=== PATIENT | female | born 1970 | race Caucasian/White ===

== ENCOUNTER → 2017-05-16 | Outpatient (CLI) | payer OTHER ==
[~2017-05-16] VITALS: Ht 167.6 cm; Wt 113.4 kg
[~2017-05-16] MED LIST: CARDIZEM90 MG PO; EFFEXOR XR150 MG PO; KEPPRA1000 MG PO; LEVEMIR FL100 UNIT/1 SC; LIPITOR80 MG PO; NOVOLOG PE100 UNITS/ SC; OXYCODONE HCL10 MG PO; PROAIR RESPICL90 MCG IH; TOPROL XL100 MG PO
[2017-05-16 08:30] LABS: POINT-OF-CARE METER ID UU14107333
[2017-05-16 08:32] LABS: HEMATOCRIT 37.6 % (36.0-46.0); MCHC 31.6 G/DL (30.0-36.0); MCV 82.1 FL (83-99); PLATELET COUNT 68 K/uL (156-360); RBC DIS.WIDTH-CV 15.9 % (11.8-14.6); RBC DIS.WIDTH-SD 47.8 % (39-53); RED BLOOD COUNT 4.58 M/uL (3.80-5.20); WHITE BLOOD COUNT 4.9 K/uL (4.1-10.2)
== END | disposition home or self-care (01) ==
LOC: AMB 07:19
PROVIDERS: Internal Medicine
DX: K29.60 Other gastritis without bleeding (principal); K74.60 Unspecified cirrhosis of liver; D12.2 Benign neoplasm of ascending colon; D50.9 Iron deficiency anemia, unspecified; K20.9 Esophagitis, unspecified; K25.9 Gastric ulcer, unspecified as acute or chronic, without hemorrhage or perforation; K64.8 Other hemorrhoids; E11.9 Type 2 diabetes mellitus without complications; E78.5 Hyperlipidemia, unspecified; D69.6 Thrombocytopenia, unspecified; K21.9 Gastro-esophageal reflux disease without esophagitis; I10 Essential (primary) hypertension; F17.200 Nicotine dependence, unspecified, uncomplicated; Z87.442 Personal history of urinary calculi; Z79.4 Long term (current) use of insulin; Z98.1 Arthrodesis status; Z82.49 Family history of ischemic heart disease and other diseases of the circulatory system; Z83.3 Family history of diabetes mellitus; Z84.1 Family history of disorders of kidney and ureter
CPT/HCPCS: 82948; 85027; 88305; 88342 TC; 93005; J2250; J3010

== ENCOUNTER → 2017-11-16 | Outpatient (CLI) | payer OTHER | END | disposition home or self-care (01) | LOC: CDC 11:07 | DX: Z01.810 Encounter for preprocedural cardiovascular examination (principal); G56.02 Carpal tunnel syndrome, left upper limb; M79.645 Pain in left finger(s) | CPT/HCPCS: 93000 ==